=== PATIENT | female | born 1995 | race African-American/Black ===

== ENCOUNTER 2018-02-12 17:04 | Emergency (ER) | payer OTHER ==
[~2018-02-12] VITALS: Ht 170.2 cm; Wt 70.8 kg
[~2018-02-12 17:04] MED LIST: ACETAMINOPHEN-1 EAC1 PO; ADVIL100 M2 PO; BENADRYL25 MG; BENTYL 20 MG TA20 M1 PO; BENTYL20 MG PO; CIPRO500 MG PO; CIPROFLOXACIN500 M1 PO; CITRATE OF MAG296 ML PO; FLAGYL500 MG PO; IBUPROFEN; KEFLEX500 MG PO; LOPERAMIDE 2 MG2 M1 PO; LORTABELXR PO; MIRALAX255 GM PO; NAPROSYN500 MG PO; NYQUIL D COLD295 ML; ONDANSETRON HCL4 M2 PO; PHENAZOPYRIDIN200 M2 PO; PREDNISONE 10 M10 M1 PO; PRENATAL TABLE1 EAC3 PO; TRINATE TABLET1 TAB PO; ZOFRAN ODT4 MG PO; ZOFRAN4 MG PO
[2018-02-12] MEDS ORDERED: FLAGYL500 M1 PO (17:47)
[2018-02-12 18:00] LABS: URINE BILIRUBIN NEGATIVE (Negative); URINE BLOOD 3+ (Negative); URINE CLARITY CLEAR; URINE COLOR YELLOW; URINE GLUCOSE-RANDOM NEGATIVE (Negative); URINE KETONES NEGATIVE (Negative); URINE LEUKOCYTES-REFLEX TRACE (Negative); URINE NITRITE-REFLEX NEGATIVE (Negative); URINE PROTEIN NEGATIVE (Negative); URINE SPECIFIC GRAVITY >= 1.030 (1.005-1.030); URINE UROBILINOGEN 0.2 E.U./dl (0.2-1.0)
[2018-02-12] MEDS ORDERED: DIFLUCAN150 M1 PO (18:18)
[2018-02-12 18:29] VITALS: BP 121/77
[2018-02-12 18:35] LABS: MUCUS 4-6 Moderate strn/LPF (None Seen); SQUAMOUS >10 Many /LPF (0-3); URINE WBC-REFLEX 6-15 Few /HPF (0-5)
[2018-02-12 18:36] LABS: BACTERIA-REFLEX 1-9 Few /HPF (None Seen); CASTS None Seen /LPF (None Seen); CRYSTALS None Seen /LPF (None Seen); WBC CLUMPS Few (None Seen)
[2018-02-12 18:38] LABS: URINE RBC 3-10 Few /HPF (0-2)
== END 2018-02-12 18:30 | disposition home or self-care (01) ==
LOC: M.ERS 17:04
PROVIDERS: Nurse Practitioner Psychiatric/Mental Health
DX: N93.8 Other specified abnormal uterine and vaginal bleeding (principal); N89.8 Other specified noninflammatory disorders of vagina

== ENCOUNTER 2018-04-26 16:54 | Emergency (ER) | payer OTHER ==
[~2018-04-26] VITALS: Ht 170.2 cm; Wt 70.3 kg
[~2018-04-26 16:54] MED LIST changes: +DIFLUCAN150 M1 PO; +FLAGYL500 M1 PO
[2018-04-26 17:24] LABS: ABSOLUTE BASOPHILS 0.1 thou/uL (0.0-0.2); ABSOLUTE EOSINOPHILS 0.2 thou/uL (0.0-0.7); ABSOLUTE MONOCYTES 0.4 thou/uL (0.0-1.2); ABSOLUTE NEUTROPHILS 5.8 thou/uL (1.6-8.1); BASOPHILS 0.6 %; EOSINOPHILS 2.1 %; HEMATOCRIT 40.5 % (37.0-47.0); HEMOGLOBIN 13.5 gm/dL (12.0-15.0); LYMPHOCYTES 31.8 %; MCH 29.8 pg (26.0-34.0); MCHC 33.3 g/dL (28.0-37.0); MCV 89.5 fL (80.0-100.0); MONOCYTES 3.9 %; MPV 8.3 fl. (7.2-11.1); NUCLEATED RBCS 0 /100WBC; PLATELET COUNT* 251 thou/uL (150-400); POLYS 61.6 %; RBC 4.53 mil/uL (4.20-5.00); WBC 9.4 thou/uL (4.0-11.0)
[2018-04-26 17:28] LABS: CALCIUM 9.1 mg/dL (8.5-10.1); CREATININE 0.8 mg/dL (0.6-1.3); POTASSIUM 3.3 mmol/L (3.5-5.1)
[2018-04-26 17:29] LABS: URINE BILIRUBIN NEGATIVE (Negative); URINE BLOOD 2+ (Negative); URINE CLARITY CLEAR; URINE COLOR YELLOW; URINE GLUCOSE-RANDOM NEGATIVE (Negative); URINE KETONES NEGATIVE (Negative); URINE LEUKOCYTES-REFLEX NEGATIVE (Negative); URINE NITRITE-REFLEX NEGATIVE (Negative); URINE PROTEIN NEGATIVE (Negative); URINE SPECIFIC GRAVITY >= 1.030 (1.005-1.030); URINE UROBILINOGEN 0.2 E.U./dl (0.2-1.0)
[2018-04-26 17:32] LABS: TOTAL BILIRUBIN 0.4 mg/dL (<0.1-1.0)
[2018-04-26 17:43] LABS: BACTERIA-REFLEX None Seen /HPF (None Seen); CASTS None Seen /LPF (None Seen); CRYSTALS None Seen /LPF (None Seen); MUCUS 4-6 Moderate strn/LPF (None Seen); SQUAMOUS >10 Many /LPF (0-3); URINE RBC 0-2 Rare /HPF (0-2); URINE WBC-REFLEX 0-5 Rare /HPF (0-5)
[2018-04-26] MEDS ORDERED: FLAGYL500 MG PO (18:49)
[2018-04-26] MEDS ORDERED: AZITHROMYCIN 2250 MG PO (18:49)
[2018-04-26 19:25] VITALS: BP 112/64
== END 2018-04-26 19:30 | disposition home or self-care (01) ==
LOC: M.ERS 16:54
PROVIDERS: Nurse Practitioner Family
DX: N76.0 Acute vaginitis (principal); N72 Inflammatory disease of cervix uteri; N83.202 Unspecified ovarian cyst, left side; R31.9 Hematuria, unspecified

== ENCOUNTER 2018-12-14 07:37 | Emergency (ER) | payer OTHER ==
[~2018-12-14] VITALS: Ht 170.2 cm; Wt 68.0 kg
[~2018-12-14 07:37] MED LIST changes: +AZITHROMYCIN 2250 MG PO
[2018-12-14 08:05] LABS: HEMATOCRIT 39.1 % (37.0-47.0); MCH 29.2 pg (26.0-34.0); MCHC 33.2 g/dL (28.0-37.0); MCV 88.1 fL (80.0-100.0); NUCLEATED RBCS 0 /100WBC; PLATELET COUNT* 161 thou/uL (150-400); RBC 4.44 mil/uL (4.20-5.00); RDW-CV 12.9 % (10.5-14.5); WBC 11.9 thou/uL (4.0-11.0)
[2018-12-14 08:13] LABS: URINE BLOOD 3+ (Negative); URINE CLARITY CLEAR; URINE COLOR YELLOW; URINE GLUCOSE-RANDOM NEGATIVE (Negative); URINE LEUKOCYTES-REFLEX 1+ (Negative); URINE NITRITE-REFLEX NEGATIVE (Negative); URINE PROTEIN 1+ (Negative); URINE SPECIFIC GRAVITY >= 1.030 (1.005-1.030)
[2018-12-14 08:16] LABS: ICTOTEST (BILI CONFIRMATORY) Negative (Negative); URINE BILIRUBIN 1+ (Negative); URINE KETONES 3+ (Negative)
[2018-12-14 08:23] LABS: BACTERIA-REFLEX 1-9 Few /HPF (None Seen); CASTS None Seen /LPF (None Seen); CRYSTALS None Seen /LPF (None Seen); MUCUS 4-6 Moderate strn/LPF (None Seen); SQUAMOUS 4-10 Moderate /LPF (0-3); URINE RBC 3-10 Few /HPF (0-2); URINE WBC-REFLEX 6-15 Few /HPF (0-5)
[2018-12-14 08:24] LABS: ALBUMIN 3.6 g/dL (3.4-5.0); CREATININE 0.9 mg/dL (0.6-1.3); POTASSIUM 3.2 mmol/L (3.5-5.1); TOTAL BILIRUBIN 0.8 mg/dL (<0.1-1.0); TOTAL PROTEIN 7.6 g/dL (6.4-8.2)
[2018-12-14 08:37] LABS: INFLUENZA A ANTIGEN None Detected (None Detect); INFLUENZA B ANTIGEN None Detected (None Detect)
[2018-12-14 08:41] LABS: ABSOLUTE LYMPHOCYTES 0.5 thou/uL (0.8-5.3); ABSOLUTE MONOCYTES 0.4 thou/uL (0.0-1.2); ABSOLUTE NEUTROPHILS 11.1 thou/uL (1.6-8.1); ANISOCYTOSIS 1+; PLATELET ESTIMATE ADEQUATE; POIKILOCYTOSIS 1+
[2018-12-14] MEDS ORDERED: KEFLEX500 M1 PO (09:08)
[2018-12-14] MEDS ORDERED: IBUPROFEN 800800 MG PO (09:10)
[2018-12-14 10:54] VITALS: BP 107/40
== END 2018-12-14 10:56 | disposition home or self-care (01) ==
LOC: M.ERS 07:37
PROVIDERS: Personal Emergency Response Attendant
DX: E86.0 Dehydration (principal); B34.9 Viral infection, unspecified

== ENCOUNTER 2019-09-04 13:08 | Emergency (ER) | payer OTHER ==
[~2019-09-04] VITALS: Ht 170.2 cm; Wt 70.3 kg
[~2019-09-04 13:08] MED LIST changes: +IBUPROFEN 800800 MG PO; +KEFLEX500 M1 PO
[2019-09-04] MEDS ORDERED: HYDROCODON-ACE1 EAC7 PO (13:44)
[2019-09-04 14:20] VITALS: BP 114/76
== END 2019-09-04 14:21 | disposition home or self-care (01) ==
LOC: M.ERS 13:08
DX: J02.9 Acute pharyngitis, unspecified (principal); Z86.2 Personal history of diseases of the blood and blood-forming organs and certain disorders involving the immune mechanism

== ENCOUNTER 2020-06-05 08:09 | Emergency (ER) | payer OTHER ==
[~2020-06-05] VITALS: Ht 170.2 cm; Wt 65.8 kg
[~2020-06-05 08:09] MED LIST changes: +HYDROCODON-ACE1 EAC7 PO
[2020-06-05 08:32] LABS: URINE BLOOD TRACE (Negative); URINE CLARITY CLEAR; URINE COLOR YELLOW; URINE GLUCOSE-RANDOM NEGATIVE (Negative); URINE LEUKOCYTES-REFLEX 1+ (Negative); URINE NITRITE-REFLEX NEGATIVE (Negative); URINE PROTEIN NEGATIVE (Negative); URINE SPECIFIC GRAVITY 1.025 (1.005-1.030)
[2020-06-05 08:36] LABS: ACETEST (KETONE CONFIRMATORY) Large (Negative); ICTOTEST (BILI CONFIRMATORY) Negative (Negative); URINE BILIRUBIN 1+ (Negative); URINE KETONES 3+ (Negative)
[2020-06-05 08:38] LABS: SQUAMOUS >10 Many /LPF (0-3)
[2020-06-05 08:39] LABS: MUCUS >6 Heavy strn/LPF (None Seen)
[2020-06-05 08:45] LABS: CASTS None Seen /LPF (None Seen); CRYSTALS None Seen /LPF (None Seen); URINE RBC 0-2 Rare /HPF (0-2)
[2020-06-05] MEDS ORDERED: DICLEGIS DR 101 EACH PO (08:50)
[2020-06-05] MEDS ORDERED: ZOFRAN ODT4 MG DISSOLVE (08:50)
[2020-06-05] MEDS ORDERED: KEFLEX500 M1 PO (09:01)
[2020-06-05 09:09] VITALS: BP 110/74
== END 2020-06-05 09:10 | disposition home or self-care (01) ==
LOC: M.ERS 08:09
PROVIDERS: Family Medicine
DX: O23.41 Unspecified infection of urinary tract in pregnancy, first trimester (principal); O21.8 Other vomiting complicating pregnancy; Z3A.08 8 weeks gestation of pregnancy

== ENCOUNTER 2021-03-14 13:49 | Emergency (ER) | payer OTHER, MEDICAID ==
[~2021-03-14] VITALS: Ht 170.2 cm; Wt 64.9 kg
[~2021-03-14 13:49] MED LIST changes: +DICLEGIS DR 101 EACH PO; +ZOFRAN ODT4 MG DISSOLVE
[2021-03-14 14:16] LABS: URINE BILIRUBIN NEGATIVE (Negative); URINE BLOOD NEGATIVE (Negative); URINE CLARITY CLEAR; URINE COLOR YELLOW; URINE GLUCOSE-RANDOM NEGATIVE (Negative); URINE KETONES NEGATIVE (Negative); URINE LEUKOCYTES-REFLEX NEGATIVE (Negative); URINE NITRITE-REFLEX NEGATIVE (Negative); URINE PROTEIN NEGATIVE (Negative); URINE SPECIFIC GRAVITY 1.015 (1.005-1.030)
[2021-03-14] MEDS ORDERED: ZOFRAN ODT4 MG DISSOLVE (14:22)
[2021-03-14 14:30] VITALS: BP 118/68
== END 2021-03-14 14:31 | disposition home or self-care (01) ==
LOC: M.ERS 13:49
PROVIDERS: Family Medicine
DX: O21.8 Other vomiting complicating pregnancy (principal); Z3A.01 Less than 8 weeks gestation of pregnancy

== ENCOUNTER 2021-11-01 18:30 | Emergency (ER) | payer OTHER, MEDICAID ==
[~2021-11-01] VITALS: Ht 170.2 cm; Wt 65.8 kg
[2021-11-01 20:59] VITALS: BP 100/58
[2021-11-01] MEDS ORDERED: MEDROLDOSEPACK PO (21:00)
[2021-11-01] MEDS ORDERED: FLEXERIL PO (21:00)
== END 2021-11-01 21:03 ==
LOC: M.ERS 18:30
DX: M54.50 Low back pain, unspecified (principal); X50.0XXA Overexertion from strenuous movement or load, initial encounter; Y93.89 Activity, other specified; Y92.89 Other specified places as the place of occurrence of the external cause; Y99.8 Other external cause status